=== PATIENT | male | born 1985 | race African-American/Black ===

== ENCOUNTER 2021-03-06 03:46 | Emergency (ER) | payer OTHER ==
[2021-03-06 03:50] VITALS: BP 141/93; PULSE 89; RESP 18; TEMP 98
[2021-03-06] MEDS ORDERED: predniSONE 20 MG TAB PO STA (04:41)
--- NOTE | 2021-03-06 04:44 | ED ---
Skin/Abscess/FB HPI - General Chief complaint: Skin/Abscess/Foreign Body Stated complaint: poss foot infection Time Seen by Provider: 03/06/21 04:16 Source: patient, family Mode of arrival: wheelchair Limitations: no limitations - History of Present Illness MD complaint: rash Onset/Timin -: week(s) Tetanus Up to Date: yes Location: L hand, R hand, L foot, R foot Severity: moderate Quality: burning Consistency: constant Improves with: none Worsens with: none Context: none - Related Data Previous Rx's Medication Instructions Recorded Fexofenadine HCl 180 mg PO DAILY #20 tablet 03/06/21 predniSONE 60 mg PO DAILY #30 tab 03/06/21 Allergies Allergy/AdvReac Type Severity Reaction Status Date / Time No Known Allergies Allergy Verified 03/06/21 03:50 Review of Systems ROS Statement: Those systems with pertinent positive or pertinent negative responses have been documented in the HPI. ROS Other: All systems not noted in ROS Statement are negative. Constitutional: Denies: fever, chills Respiratory: Denies: cough, dyspnea Cardiovascular: Denies: chest pain, palpitations, edema Gastrointestinal: Denies: abdominal pain, vomiting Skin: Reports: as per HPI, rash Past Medical History Past Medical History: No Reported History Past Surgical History: No Surgical Hx Reported Past Psychological History: No Psychological Hx Reported Smoking Status: Current every day smoker Past Alcohol Use History: None Reported Past Drug Use History: None Reported General Exam Limitations: no limitations General appearance: alert, in no apparent distress Head exam: Present: atraumatic, normocephalic Eye exam: Present: normal appearance. Absent: scleral icterus, conjunctival injection ENT exam: Present: normal oropharynx Neurological exam: Present: alert Skin exam: Present: warm, dry, other (Patient has classic dyshidrotic eczema changes to bilateral hands and bilateral feet. No evidence of superinfection, no erythema, warmth, purulent drainage.) Course Vital Signs 03/06/21 03:47 Temperature 98 F Pulse Rate 89 Respiratory 18 Rate Blood Pressure 141/93 O2 Sat by Pulse 98 Oximetry Disposition Clinical Impression: Dyshidrotic eczema Disposition: HOME SELF-CARE Condition: Good Instructions (If sedation given, give patient instructions): Dyshidrotic Eczema (ED) Prescriptions: Fexofenadine HCl 180 mg PO DAILY #20 tablet predniSONE 60 mg PO DAILY #30 tab Is patient prescribed a controlled substance at d/c from ED?: No Referrals: None,Stated [Primary Care Provider] - 1-2 days Katja Jimenez MD [STAFF PHYSICIAN] - 1-2 days
== END 2021-03-06 05:09 | disposition home or self-care (01) ==
LOC: EC 03:46
DX: L30.1 Dyshidrosis [pompholyx] (principal); F17.200 Nicotine dependence, unspecified, uncomplicated
CPT/HCPCS: 36415; 86780; 99283; J7512

== ENCOUNTER 2022-03-17 06:36 | Emergency (ER) | payer MEDICARE, OTHER ==
--- NOTE | 2022-03-17 08:07 | ED ---
General Adult HPI - General Chief complaint: Recheck/Abnormal Lab/Rx Stated complaint: SOB, sleep issues Time Seen by Provider: 03/17/22 06:44 Source: patient Mode of arrival: ambulatory - History of Present Illness Initial comments: 36-year-old male presents to the emergency room for a chief complaint of difficulty sleeping secondary to snoring. This has been ongoing for a year. Patient states for the past couple weeks he has had extreme daytime sleepiness where he is falling asleep while driving. He had a sleep study done and was told he had sleep apnea and stops breathing at night. Last night he was trying to sleep and kept waking up. Patient wasn't sure what to do so came to the ER. He is waiting on a CPAP machine which is in the mail. Patient has no other complaints at this time including shortness of breath, chest pain, abdominal pain, nausea or vomiting, headache, or visual changes. - Related Data Previous Rx's Medication Instructions Recorded Fexofenadine HCl 180 mg PO DAILY #20 tablet 03/06/21 predniSONE 60 mg PO DAILY #30 tab 03/06/21 Allergies Allergy/AdvReac Type Severity Reaction Status Date / Time No Known Allergies Allergy Verified 03/17/22 06:41 Review of Systems ROS Statement: Those systems with pertinent positive or pertinent negative responses have been documented in the HPI. ROS Other: All systems not noted in ROS Statement are negative. Past Medical History Past Medical History: Sleep Apnea/CPAP/BIPAP Past Surgical History: No Surgical Hx Reported Past Psychological History: No Psychological Hx Reported Smoking Status: Current every day smoker Past Alcohol Use History: None Reported Past Drug Use History: None Reported General Exam General appearance: alert, in no apparent distress Head exam: Present: atraumatic Eye exam: Present: normal appearance, PERRL, EOMI. Absent: scleral icterus, conjunctival injection, nystagmus ENT exam: Present: normal exam, mucous membranes moist Neck exam: Present: normal inspection, full ROM. Absent: tenderness Respiratory exam: Present: normal lung sounds bilaterally. Absent: respiratory distress, wheezes Cardiovascular Exam: Present: regular rate, normal rhythm, normal heart sounds GI/Abdominal exam: Present: soft, normal bowel sounds. Absent: distended, tenderness Neurological exam: Present: alert Course Vital Signs 03/17/22 06:39 Temperature 97.4 F L Pulse Rate 97 Respiratory 18 Rate Blood Pressure 125/83 O2 Sat by Pulse 95 Oximetry Medical Decision Making - Medical Decision Making Vitals are stable. Patient is sleeping in the exam room. On physical exam patient does have tonsillar hypertrophy and fullness of the bilateral tonsillar pillars. CBC unremarkable. CT soft tissue shows tonsillar hypertrophy without well-formed fluid collection or abscess. At this time patient can be discharged home. He will follow up for his CPAP machine. He is aware he cannot drive home today given his sleepiness. He will return here for any worsening symptoms. dr. pruett also evaluated patient. Case discussed with Dr. Avila who will see him but needs a copy of the sleep study. States to start on a CPAP as soon as possible and tried to lose weight.. - Lab Data Result diagrams: 03/17/22 07:57 Lab Results 03/17/22 Range/Units 07:57 WBC 9.3 (3.8-10.6) k/uL RBC 5.70 (4.30-5.90) m/uL Hgb 17.0 (13.0-17.5) gm/dL Hct 53.2 H (39.0-53.0) % MCV 93.4 (80.0-100.0) fL MCH 29.8 (25.0-35.0) pg MCHC 31.9 (31.0-37.0) g/dL RDW 13.7 (11.5-15.5) % Plt Count 255 (150-450) k/uL MPV 7.7 Neutrophils % 69 % Lymphocytes % 18 % Monocytes % 7 % Eosinophils % 3 % Basophils % 1 % Neutrophils # 6.4 (1.3-7.7) k/uL Lymphocytes # 1.7 (1.0-4.8) k/uL Monocytes # 0.7 (0-1.0) k/uL Eosinophils # 0.3 (0-0.7) k/uL Basophils # 0.1 (0-0.2) k/uL Disposition Clinical Impression: Tonsillar hypertrophy Disposition: HOME SELF-CARE Condition: Good Instructions (If sedation given, give patient instructions): Tonsillitis (ED) Additional Instructions: Please follow-up with your doctor in one to 2 days. Follow up with Dr. Rodriguez as well, but you NEED to get a copy of your sleep study BEFORE you see him and take it to the appointment. Try to lose weight as that should help. No driving until you get your sleep issues worked out and are cleared by a doctor. Return to the ER for any worsening symptoms. Is patient prescribed a controlled substance at d/c from ED?: No Referrals: Edward Rodriguez DO [Doctor of Osteopathic Medicine] - 1-2 days Roxy Velásquez MD [REFERRING] - 1-2 days Time of Disposition: 08:54
[2022-03-17 08:10] LABS: Basophils # (A) 0.1 k/uL (0-0.2); Basophils % (A) 1 %; Eosinophils # (A) 0.3 k/uL (0-0.7); Eosinophils % (A) 3 %; HCT 53.2 % (39.0-53.0); Lymphocytes # (A) 1.7 k/uL (1.0-4.8); Lymphocytes % (A) 18 %; MCH 29.8 pg (25.0-35.0); MCHC 31.9 g/dL (31.0-37.0); MCV 93.4 fL (80.0-100.0); Mean Platelet Volume 7.7; Monocytes # (A) 0.7 k/uL (0-1.0); Monocytes % (A) 7 %; Neutrophils # (A) 6.4 k/uL (1.3-7.7); Neutrophils % (A) 69 %; Platelet Count 255 k/uL (150-450); RDW 13.7 % (11.5-15.5); WBC 9.3 k/uL (3.8-10.6)
--- NOTE | 2022-03-17 08:22 | CT ---
EXAMINATION TYPE: CT soft tissue neck w con DATE OF EXAM: 03/17/2022 HISTORY: Sore throat, SOB COMPARISON: NONE CT DLP: 731.2 mGycm. Automated Exposure Control for Dose Reduction was Utilized. TECHNIQUE: CT scan of the neck is performed with IV Contrast, patient injected with 100 mL of Isovue 300, axial images are obtained, coronal and sagittal reformatted images are reviewed. FINDINGS: Airway: Prominence of the adenoid tonsils in the posterior nasopharynx with mass effect on the nasoph aryngeal airway. Narrowing of the oropharyngeal airway due to palatine tonsillar prominence and lingu lar tonsillar prominence involving the posterior tongue. No well-formed fluid collection or drainable abscess. Hypopharyngeal airway and region of the epiglottis and vallecula appears within normal limi ts. The piriform sinuses are symmetric. Slice of the lungs are clear. Cavitary fillings and crowns in the bilateral teeth cause streak artifact at level of the oropharynx. Parotid/submandibular glands: No gross abnormality seen. Carotid/Vascular Structures: No significant abnormality. Osseous Structures: No significant abnormality. Other: The parapharyngeal fat spaces are symmetric and felt within normal limits. There are prominent but subcentimeter lymph nodes throughout the neck bilaterally greatest in the posterior cervical tri angles and slightly larger on the left. For reference there is 1.2 x 0.7 cm lymph node noted axial im age 71. No definitive abnormal greater than 1 cm neck adenopathy. Fractures of the medial wall bilateral orbits is noted axial image 93. Globes are intact bilaterally. Conal fat is preserved. Paranasal sinuses show small mucous retention cysts and/or polyps with mild mucosal thickening inferiorly in the bilateral maxillary sinuses. IMPRESSION: Tonsillar hypertrophy without well formed fluid collection or abscess.
[2022-03-17 11:01] VITALS: BP 121/82; PULSE 91; RESP 20; TEMP 97.6
== END 2022-03-17 10:23 | disposition home or self-care (01) ==
LOC: EC 06:36
DX: J35.1 Hypertrophy of tonsils (principal); F17.200 Nicotine dependence, unspecified, uncomplicated
CPT/HCPCS: 36415; 85025; 87081; 87430; 70491; 99285; Q9967